=== PATIENT | female | born 1930 | race Caucasian/White ===

== ENCOUNTER 2018-05-14 12:30 | Inpatient (IN) | payer OTHER, BC ==
[~2018-05-14] VITALS: Ht 142.2 cm; Wt 57.6 kg
--- NOTE | ~2018-05-14 | P ---
[facility] [place] [address] PROCEDURE REPORT Name: GARRETT LAND Room #: 220-P ADM IN M.R.#: [id number] Admission: 05/14/18 Attend Phys: Krunal Alcazar MD Discharge: Date of : 12/25/30 Report #: [id number] THIS REPORT FOR: //name// CC: Krunal Luz DO DATE OF SERVICE: 05/17/2018 PROCEDURE PERFORMED: Attempted ERCP. HISTORY OF PRESENT ILLNESS: The patient is an 87-year-old female with new-onset jaundice. She does report weight loss of approximately 10 pounds in the last month. She was noted to have significantly elevated liver function test. On admission, total bilirubin was 15.0; today, it is 17.9. AST 401, alkaline phosphatase 1035 and ALT 318. She underwent a CT scan of her abdomen and pelvis on 05/14/2018, which showed marked dilation of the intrahepatic and extrahepatic biliary tree as well as distention of the gallbladder. 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 Her CA 19-9 level is 14,297. CA-125 is 69.6. Plan is for ERCP. DESCRIPTION OF PROCEDURE: The risks and benefits of the procedure were explained to the patient; those risks including but not limited to bleeding, perforation, the risk of sedation as well as potential risk for post-ERCP pancreatitis. She understood these risks and gave informed consent. The procedure was performed in the operating room under general anesthesia. The patient is already on IV Rocephin at this time. A 50 mg indomethacin rectal suppository was given prior to the procedure as well. Next, using a standard Olympus side-viewing ERCP scope, the scope was placed in the patient's mouth and advanced under direct vision through the esophagus, stomach and into the second portion of the duodenum. Interestingly, in the first portion of the duodenum, there was a septated band with 2 openings in the lumen. I suspect this is from previous scar tissue. I was eventually able to advance the scope through one of the areas. The major papilla was not clearly identified due to the patient's anatomy. There was fullness above this area, but I was able to use a [employer] 0.025 sphincterotome, which appeared to be the opening. I tried to cannulate common bile duct multiple times, unsuccessful. At one point, infused some dye that may have gone into the pancreatic duct. Right after that, some old bile was noted draining through this area. Again, I attempted multiple times, but due to her anatomy, there was unsuccessful cannulation of the common bile duct. At this point, the scope was withdrawn. The procedure was terminated. The patient tolerated the procedure well. IMPRESSION: 1. Unsuccessful ERCP, as described above. [address] [address] PROCEDURE REPORT Name: GARRETT LAND Room #: 220-P [facility] IN M.R.#: [id number] Admission: 05/14/18 Attend Phys: Krunal Alcazar MD Discharge: Date of : 12/25/30 Report #: [id number] 2. Septated area of the first portion of the duodenum. RECOMMENDATIONS: I would recommend Interventional Radiology attempt a percutaneous biliary drain tomorrow. Thank you for allowing me to participate in her care. <ELECTRONICALLY SIGNED> By: Eduar Ibarra MD 05/18/18 1709 [id number] [id number] Eduar Ibarra MD /nt
[~2018-05-14 12:30] MED LIST: LIPITOR 20 MG T20 M1 PO; NORCO 5-325 TA1 EACH PO; NORVASC5 MG PO; PLAVIX 75 MG TA75 M1 PO; PROTONIX40 M2 PO; VASOTEC10 MG PO; ZOFRAN ODT4 M1 PO
[2018-05-14 12:31] VITALS: BP 134/78
[2018-05-14 13:02] LABS: URINE BILIRUBIN 3+ (Negative); URINE BLOOD 2+ (Negative); URINE COLOR YELLOW; URINE GLUCOSE-RANDOM* NEGATIVE (Negative); URINE KETONES NEGATIVE (Negative); URINE PROTEIN (DIPSTICK) TRACE (Negative); URINE SPECIFIC GRAVITY <= 1.005 (1.005-1.035); URINE UROBILINOGEN 0.2 E.U./dl (0.2-1.0)
[2018-05-14 13:10] LABS: HEMATOCRIT 37.3 % (37.0-47.0); HEMOGLOBIN 12.8 gm/dL (12.0-15.0); MCH 32.8 pg (26.0-34.0); MCHC 34.4 g/dL (28.0-37.0); MCV 95.3 fL (80.0-100.0); RBC 3.91 mil/uL (4.20-5.00); RDW 15.8 % (10.5-14.5); WBC 7.6 thou/uL (4.0-11.0)
[2018-05-14 13:13] LABS: ICTOTEST (BILI CONFIRMATORY) Positive (Negative); URINE LEUKOCYTES-REFLEX 3+ (Negative); URINE NITRITE-REFLEX POSITIVE (Negative)
[2018-05-14 13:14] LABS: URINE CLARITY HAZY
[2018-05-14 13:16] LABS: BACTERIA-REFLEX >30 Many /HPF (None Seen); CASTS None Seen /LPF (None Seen); CRYSTALS None Seen /LPF (None Seen); SQUAMOUS 0-3 Few /LPF (0-3); URINE WBC-REFLEX >25 Many /HPF (0-5)
[2018-05-14 13:24] LABS: CALCIUM 9.7 mg/dL (8.5-10.1); CREATININE 0.8 mg/dL (0.6-1.0); POTASSIUM 3.2 mmol/L (3.5-5.1)
[2018-05-14 13:38] LABS: ALBUMIN 3.1 g/dL (3.4-5.0); TOTAL PROTEIN 8.1 g/dL (6.4-8.2)
[2018-05-14 14:04] LABS: ABSOLUTE NEUTROPHILS 5.8 thou/uL (1.4-8.2); LARGE PLATELETS FEW; PLATELET COUNT 124 thou/uL (150-400)
[2018-05-14 15:44] VITALS: BP 109/64
[2018-05-14 16:40] VITALS: BP 120/75
[2018-05-14 19:22] VITALS: BP 105/52
[2018-05-15 01:07] LABS: ALPHA FETOPROTEIN-TUMOR* 2.6 ng/mL (0.0-8.3)
[2018-05-15 05:05] LABS: ALBUMIN 2.5 g/dL (3.4-5.0); CALCIUM 9.1 mg/dL (8.5-10.1); CREATININE 0.6 mg/dL (0.6-1.0); POTASSIUM 3.7 mmol/L (3.5-5.1); TOTAL BILIRUBIN 13.3 mg/dL (<0.1-1.0); TOTAL PROTEIN 6.6 g/dL (6.4-8.2)
[2018-05-15 06:15] VITALS: BP 110/65
[2018-05-15 08:15] VITALS: BP 134/68
[2018-05-15 14:55] VITALS: BP 127/72
[2018-05-15 20:00] VITALS: BP 113/69
[2018-05-16 08:00] VITALS: BP 126/74
[2018-05-16 19:49] VITALS: BP 140/67
[2018-05-17 07:20] VITALS: BP 121/71
[2018-05-17 07:36] LABS: HEMATOCRIT 35.6 % (37.0-47.0); HEMOGLOBIN 12.2 gm/dL (12.0-15.0)
[2018-05-17 08:00] LABS: ALBUMIN 2.3 g/dL (3.4-5.0); CALCIUM 8.2 mg/dL (8.5-10.1); CREATININE 0.5 mg/dL (0.6-1.0); POTASSIUM 3.4 mmol/L (3.5-5.1); TOTAL BILIRUBIN 17.9 mg/dL (<0.1-1.0); TOTAL PROTEIN 6.8 g/dL (6.4-8.2)
[2018-05-17 21:02] VITALS: BP 141/68
[2018-05-18] VITALS (11 sets, daily range): BP systolic 107–146; BP diastolic 58–97
[2018-05-18 10:46] LABS: INR 1.4; PROTIME 14.4 Seconds (9.3-11.4)
[2018-05-19 01:17] VITALS: BP 113/61
[2018-05-19 08:30] VITALS: BP 115/57
[2018-05-19] MEDS ORDERED: MSL20MG/ML PO (09:08)
[2018-05-19] MEDS ORDERED: ZOLOFT25 MG PO (09:11)
[2018-05-19] MEDS ORDERED: CEFUROXIME250 MG PO (09:11)
[2018-05-19] MEDS ORDERED: ZOFRAN ODT4 MG DISSOLVE (09:11)
== END 2018-05-19 11:41 | disposition hospice, home (50) | DRG 435 ==
LOC: ER 12:30 → EROBS 14:35 → 4E 14:35 → SICU 14:35 → 4E 16:23 → SICU 05-15 14:40 → ENTRNSPT 05-17 17:37 → CMPTRNSPT 05-18 08:14 → SICU 05-19 11:41
PROVIDERS: Emergency Medicine; Hospitalist; Nurse Practitioner; Radiology Diagnostic Radiology; Student in an Organized Health Care Education/Training Program
DX: C25.9 Malignant neoplasm of pancreas, unspecified (principal); E43 Unspecified severe protein-calorie malnutrition; K83.1 Obstruction of bile duct; N39.0 Urinary tract infection, site not specified; R74.0 Nonspecific elevation of levels of transaminase and lactic acid dehydrogenase [LDH]; E80.6 Other disorders of bilirubin metabolism; N20.0 Calculus of kidney; E78.5 Hyperlipidemia, unspecified; R59.9 Enlarged lymph nodes, unspecified; I10 Essential (primary) hypertension; F32.9 Major depressive disorder, single episode, unspecified; M62.84 Sarcopenia; E87.6 Hypokalemia; R68.2 Dry mouth, unspecified; F06.31 Mood disorder due to known physiological condition with depressive features; Z90.710 Acquired absence of both cervix and uterus; Z86.73 Personal history of transient ischemic attack (TIA), and cerebral infarction without residual deficits; Z87.81 Personal history of (healed) traumatic fracture; Z88.2 Allergy status to sulfonamides; Z79.899 Other long term (current) drug therapy; Z68.28 Body mass index [BMI] 28.0-28.9, adult
CPT/HCPCS: 10183; 15002; 62110; 62900